=== PATIENT | male | born 1985 | race Caucasian/White ===

== ENCOUNTER 2023-07-16 23:02 | Emergency (ER) | payer OTHER, SELFPAY ==
[2023-07-17] MEDS ORDERED: Ketorolac Tromethamine 30 MG/ML VIAL ONE (00:09)
[2023-07-17] MEDS ORDERED: Dexamethasone 10 MG/ML VIAL ONE (00:09)
== END 2023-07-17 01:58 | disposition home or self-care (01) ==
LOC: CSHERS 23:02
DX: M54.50 Low back pain, unspecified (principal); G89.29 Other chronic pain; I10 Essential (primary) hypertension; F17.290 Nicotine dependence, other tobacco product, uncomplicated
CPT/HCPCS: 72131; 96372; J1100; J1885